=== PATIENT | female | born 1955 | race Caucasian/White ===

== ENCOUNTER 2019-09-01 13:39 | Emergency (ER) | payer OTHER, BC, SELFPAY ==
--- NOTE | ~2019-09-01 | XR_ITS ---
XR hand LT min 3V 09/01/2019 14:21 Indication: Left hand pain after trauma. Procedure: 3 views left hand Comparison: Comparison to multiple prior studies sequentially, with oldest reviewed study dated 01/22. Findings: There is a side plate and screws transfixing distal aspect of the radius. There is an old u lnar styloid avulsion fracture with nonunion. 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 No acut e fracture or traumatic malalignment. No focal soft tissue abnormality. No radiopaque foreign bodies. Impression: 1: No acute fracture. Reviewed, dictated and finalized at location A. Impression: 1: No acute fracture.
[2019-09-01 13:40] VITALS: BP 131/80; PULSE 85; RESP 18; TEMP 36.4; O2SAT 99
--- NOTE | 2019-09-01 14:23 | ED.GENADULT ---
HPI - General Adult General Chief complaint: Extremity Injury, Upper Stated complaint: left finger injury Time Seen by Provider: 09/01/19 13:56 Source: patient Mode of arrival: ambulatory Limitations: no limitations History of Present Illness HPI narrative: 63-year-old female patient presents to the [facility] care with complaints of left second, third, fourth finger pain but more specifically in the third finger. Patient states that she smashed her fingers in a door about a week ago while at work. Patient states that she iced it right away and has been taking ibuprofen for the pain. Patient states she has been using a finger splint to the left middle finger. Patient states she continues to have pain specifically to the left middle finger. Patient states that she tried to get an x-ray at her primary doctor however she went to the urgent care and they were closed so she came here for x-rays. Patient is right-hand dominant. Related Data Home Medications Medication Instructions Recorded Confirmed albuterol sulfate [Ventolin HFA] INHALATION 09/01/19 09/01/19 lisinopril-hydrochlorothiazide tablet 09/01/19 metformin mg 09/01/19 pantoprazole PO 09/01/19 pravastatin 09/01/19 Allergies Allergy/AdvReac Type Severity Reaction Status Date / Time codeine Allergy Severe HIVES, Verified 09/01/19 13:47 FLUSHING Review of Systems Review of Systems: Narrative: CONSTITUTIONAL: Denies fever, chills, or sweats. EYES: Denies visual changes, redness, or discharge. ENT: Denies rhinorrhea, congestion, sore throat, or otalgia. CARDIOVASCULAR: Denies chest pain, palpitations, or edema. RESPIRATORY: Denies cough or dyspnea. GASTROINTESTINAL: Denies abdominal pain, nausea, vomiting, or diarrhea. GENITOURINARY: Denies dysuria or hematuria. SKIN: Denies rash or itching. MUSCULOSKELETAL: Denies back pain, joint pain, or myalgia. Positive left second, third and fourth finger pain NEUROLOGIC: Denies headache, numbness, or weakness. PSYCHIATRIC: Denies anxiety or depression. [facility] Family History Family History Mother Family history of glaucoma Sibling Family history of malignant neoplasm Father Malignant neoplasm of prostate Acute myocardial infarction Other Family history of cardiovascular disease Social History Social History Alcohol intake: never Gender identity (if verbalized by the patient): Female Comments At the time of my signature I agree with nursing past medical history, surgical, social, and family history. There is no relevant family history pertinent to the presenting complaint. Exam Narrative: Exam Narrative: GENERAL: Well-appearing, well-nourished, and in no acute distress. HEAD: Normocephalic, atraumatic. EYES: PERRLA and EOMI. ENT: Nares clear, no rhinorrhea or epistaxis. Mucous membranes moist. NECK: Supple. No lymphadenopathy CHEST: Clear to auscultation. No respiratory distress. HEART: Regular rate and rhythm. No murmur heard. Normal peripheral pulses. ABDOMEN: Soft, nontender, nondistended, normal active bowel sounds. EXTREMITIES: The L hand is without obvious asymmetry or deformity when compared to the R hand. No swelling, erythema, atrophy, or obvious deformity. No surface trauma, open wounds, nail avulsion, tissue avulsion, partial or complete amputation, subungual hematoma, bony deformity. Normal cascade of fingers except for the left middle finger which patient is unable to bend without pain. Normal flexion and extension of all other fingers. FDS and FDP intact aganist restistance. No focal fullness, thobbing pain, swelling of fingertip. No tenderness to palpation of the left middle finger. Pulses and cap refill. SKIN: Warm, dry, no rash. NEURO: No focal deficits. Alert and oriented x3. Course Reevaluation(s) Reevaluation #1: Reevaluated patient after her x-rays had resulted. Notified her th
[2019-09-01 15:26] VITALS: BP 132/72; PULSE 70; RESP 16; TEMP 36.2; O2SAT 99
== END 2019-09-01 15:27 | disposition home or self-care (01) ==
PROVIDERS: Emergency Provider Nurse Practitioner Family; PCP Family Medicine
DX: S63.613A Unspecified sprain of left middle finger, initial encounter (principal); Z79.84 Long term (current) use of oral hypoglycemic drugs; R03.0 Elevated blood-pressure reading, without diagnosis of hypertension; W23.0XXA Caught, crushed, jammed, or pinched between moving objects, initial encounter
CPT/HCPCS: 73130; 99283

== ENCOUNTER → 2021-03-19 01:47 | Outpatient (CLI) | payer BC, SELFPAY ==
[2021-03-20 03:59] LABS: SARS-CoV-2 RNA PCR Positive
== END ==
PROVIDERS: PCP Family Medicine; Visit Provider Physician Assistant
DX: U07.1 COVID-19 (principal)
CPT/HCPCS: C9803; U0003; U0005

== ENCOUNTER 2021-03-21 07:42 | Outpatient (RCR) | payer BC, SELFPAY ==
[2021-03-21] MEDS: FAMOTIDINE 20 MG TABLET PO (10:15)
[2021-03-21] MEDS: diphenhydrAMINE HCl CAP 25 MG CAPSULE PO (10:15)
[2021-03-21] MEDS: ACETAMINOPHEN 325 MG TABLET 650 MG PO (10:15)
[2021-03-21 10:20] VITALS: BP 147/77; PULSE 86; RESP 20; TEMP 35.9; O2SAT 95
[2021-03-21 11:54] VITALS: BP 135/67
== END 2021-03-21 17:00 ==
LOC: AMCINF 07:42
PROVIDERS: PCP Physician Assistant; Visit Provider Internal Medicine Hematology & Oncology
DX: U07.1 COVID-19 (principal); E11.9 Type 2 diabetes mellitus without complications; I10 Essential (primary) hypertension
CPT/HCPCS: A9270; M0245; Q0245

== ENCOUNTER 2021-03-25 15:43 | Inpatient (IN) | payer BC, SELFPAY ==
--- NOTE | ~2021-03-25 | CT_ITS ---
EXAMINATION: CTA chest PE abdomen pel EXAM DATE: 03/25/2021 20:03 INDICATION: SOB, COVID+, abdominal pain, vomiting, diarrhea. TECHNIQUE: Spiral CTA of the chest (pulmonary arteries) was performed with 100 cc Omnipaque 350 intr avenous contrast injection. Images were acquired during the pulmonary arterial phase. Coronal maxi mum intensity projection 3D-reconstructions were created by the technologist on dedicated workstation . Axial, coronal and sagittal reformatted images were reviewed. Spiral CT of the abdomen and pelvis was then performed with the same intravenous contrast injection. Axial, coronal and sagittal reform atted images were reviewed. The dose-length product (DLP) for this examination was 4.43 mGy-cm. The exposure was tailored according to patient size (auto mA exposure control), and iterative recons truction (ASIR) was used as additional dose reduction technique. Correlation is made to chest x-ray s jimmy date. FINDINGS: CHEST: Pulmonary arteries are well opacified and without intraluminal filling defects. No thoracic aortic dissection. Moderate amount of groundglass density airspace disease, appearance and distribu tion is consistent with acute stage COVID pneumonia. There are no pleural or pericardial effusions. Tracheobronchial tree is patent. There is no mediastinal, hilar or axillary lymphadenopathy. Th ere is no pneumothorax. Heart normal in size. There is mild coronary arterial calcification, victor manuel rial sclerosis. ABDOMEN PELVIS: The liver, spleen, adrenal glands and pancreas are unremarkable. There are cholecyst ectomy clips. Portal and splenic veins are patent. Kidneys enhance symmetrically. There is no hydr onephrosis. The uterus is not identified and has likely been surgically resected. The bladder is u nremarkable. There is no retroperitoneal or pelvic lymphadenopathy. The appendix is not positively visualized. There is no pericecal inflammatory change to suggest appe ndicitis. The stomach and small bowel are unremarkable. There is expected amount of colonic stool. No free intraperitoneal gas. There are no osteoblastic or osteolytic lesions identified. IMPRESSION: 1. Moderate amount of COVID pneumonia. 2. No pulmonary emboli. 3. No acute intra-abdominal findings. Reviewed, dictated and finalized at location A. R INSPECTOR
--- NOTE | ~2021-03-25 | XR_ITS ---
EXAMINATION: XR chest 1V portable EXAM DATE: 03/25/2021 18:39 INDICATION: sob, Covid +, hx of asthma, HTN . TECHNIQUE: Portable AP frontal chest x-ray was obtained. There is no prior study for comparison. FINDINGS: Moderate amount of bilateral ill-defined peripheral predominant airspace disease, appearanc e is consistent with COVID pneumonia. No pneumothorax or pleural effusion. Mild cardiomegaly. There a re mild bony degenerative changes. IMPRESSION: 1. Moderate amount of airspace disease consistent with COVID pneumonia. Reviewed, dictated and finalized at location A. IDE MAINTENANCE WORKER
[2021-03-25 15:57] VITALS: BP 149/85; PULSE 82; RESP 20; TEMP 36.1; O2SAT 95
--- NOTE | 2021-03-25 16:52 | ECG_ITS ---
Measurements Intervals [place] Rate: 78 P: 1 WA: 132 QRS: -17 QRSD: 109 T: 35 QT: 370 QTc: 423 Interpretive Statements SINUS RHYTHM DELAYED PRECORDIAL R/S TRANSITION LEFT VENTRICULAR HYPERTROPHY AND ST-T CHANGE BASELINE ARTIFACT- I, II, III, AVR BORDERLINE ECG Electronically Signed On 03-25-2021 17:12:23 BACTERIOLOGIST DAIRY by Zack Mena D.O.
--- NOTE | 2021-03-25 17:05 | PC.NURSE ---
Pt c/o having chest pain and feeling like she is going to pass out.
[2021-03-25 17:06] VITALS: BP 158/95; PULSE 79; RESP 24; O2SAT 89
[2021-03-25 17:07] VITALS: O2SAT 95
--- NOTE | 2021-03-25 18:34 | ED.GENADULT ---
HPI - General Adult General Chief complaint: Unspecified Stated complaint: tested pos for covid, dehydrated. 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 She states that she tested positive for COVID on 03/19 and had antibody infusion the next day. However, she continues to feel worse. She states that she feels dehydrated. She has history of asthma. Related Data Home Medications Medication Instructions Recorded Confirmed albuterol sulfate [Ventolin HFA] 2 mcg INHALATION Q4H PRN 09/01/19 03/25/21 metformin 500 mg PO BID 09/01/19 03/25/21 pantoprazole [Protonix] 40 mg PO DAILY 09/01/19 03/25/21 pravastatin 20 mg PO DAILY 09/01/19 03/25/21 lisinopril 40 mg PO DAILY 03/25/21 03/25/21 Allergies Allergy/AdvReac Type Severity Reaction Status Date / Time codeine Allergy Severe HIVES, Verified 09/01/19 13:47 FLUSHING Review of Systems Constitutional: Constitutional: Denies chills, Denies fever(s), Denies headache(s) and Denies weakness Eyes: Eyes: Denies blurry vision ENT: Denies headache(s) and Denies neck pain Cardiovascular: Cardiovascular: Reports chest pain and Reports dyspnea Respiratory: Respiratory: Reports cough and Reports dyspnea Gastrointestinal: Gastrointestinal: Reports abdominal pain, Reports diarrhea, Reports nausea and Reports vomiting Genitourinary: Genitourinary: Denies hematuria and Denies dysuria Musculoskeletal: Musculoskeletal: Denies back pain and Denies neck pain Neurologic: Denies headache(s) and Denies weakness PMFSH Past Medical History Medical History Asthma Borderline diabetes mellitus Chronic sinusitis Essential hypertension GERD (gastroesophageal reflux disease) Hyperlipidemia Normal colonoscopy Obesity, morbid, BMI 40.0-49.9 Obstructive sleep apnea Does not use CPAP Psoriasis Right arm Surgical History Surgical History H/O hysterectomy for benign disease (~1997) History of appendectomy History of total right knee replacement (~2016) Hx of cholecystectomy Status post open reduction with internal fixation of fracture (~2007) Left radius Family History Family History Mother Glaucoma CHF (congestive heart failure) Sibling No problems noted. Father , Age 62 Acute myocardial infarction Malignant neoplasm of prostate Social History Social History Social History: Patient lives at home with her of 16 years. She has 3 biologic children and 2 step children. She works at [employer]. She rarely drinks alcohol and only small amounts. She smoked 1 pack of cigarettes per week for approximately 3-5 years when she was younger. Smoking status: Never smoker Second hand tobacco smoke exposure: Yes Alcohol intake: current Drinks per week: 1 Substance use: never Gender identity (if verbalized by the patient): Female Spiritual care concerns: No Exam Const: General: no acute distress and well developed Orientation/consciousness: oriented to person, oriented to place, oriented to time and patient oriented x3 HENMT: Head: normocephalic Ears: external ears normal General nose exam: Normal external nose present Eyes: General: appearance normal, both eyes and all related structures Conjunctivae: conjunctivae normal Neck: Neck: normal visual inspection and full ROM Chest: Chest palpation & inspection: normal inspection of the chest and no tenderness Resp: Effort & Inspection: Actively coughing and tachypneic Cardio: Rate: regular rate Rhythm: regular rhythm GI: GI Palp: No abdominal tenderness and Yes Soft to palpation Skin:
[2021-03-25] MEDS: SODIUM CHLORIDE 0.9% IV 1,000 ML 999 ML IV CONT (18:46)
[2021-03-25] MEDS: ONDANSETRON INJ 4 MG/2 ML VIAL IV PUSH (18:46)
[2021-03-25 19:00] LABS: Basophils Percent Auto 0.1 % (0.2-1.2); Eosinophils Absolute Auto 0.1 K/mm3 (0-0.3); Eosinophils Percent Auto 0.7 % (0-4.4); Hematocrit 39.5 % (37.0-47.0); Immature Granulocyte Absolute 0.05 K/mm3 (0.00-0.031); Immature Granulocyte Percent A 0.7 % (0-0.5); Lymphocytes Absolute Auto 1.34 K/mm3 (0.9-3.2); Mean Corpuscular HGB Conc 32.9 g/dl (32-36); Mean Corpuscular Hemoglobin 28.1 pg (26-34); Mean Corpuscular Volume 85.5 fl (80-100); Mean Platelet Volume 8.7 fl (7.4-10.4); Monocytes Absolute Auto 0.3 K/mm3 (0.1-0.6); Monocytes Percent Auto 4.4 % (2.6-8.5); Neutrophils Absolute Auto 5.7 K/mm3 (1.3-6.7); Neutrophils Percent Auto 76.1 % (45.5-73.1); Platelet Count Result 316 k/mm3 (150-375); Red Blood Count 4.62 M/mm3 (4.2-5.4); Red Cell Distribution Width 13.4 % (11.5-14.5); White Blood Count 7.4 K/mm3 (4.5-10.0)
[2021-03-25 19:15] LABS: Alanine Aminotransferase 45 U/L (4-35); Alkaline Phosphatase 78 U/L (38-126); Anion Gap 9 mmol/L (8-16); Aspartate Amino Transferase 49 U/L (14-36); Bilirubin,Total 0.6 mg/dL (0.2-1.3); Blood Urea Nitrogen 15 mg/dL (7-17); Calcium 9.1 mg/dL (8.4-10.2); Carbon Dioxide 31 mmol/L (22-30); Chloride 97 mmol/L (98-107); Estimated CRCL calculation 111 ml/min; Estimated Glomerular Filt Rate > 60; Glucose 124 mg/dL (65-110); Sodium 137 mmol/L (137-145)
[2021-03-25 19:22] LABS: D Dimer 1.23 ug/mL (<0.48)
[2021-03-25 19:24] LABS: NT Pro B Type Natriuretic Pept 332 pg/mL (5-100)
[2021-03-25 19:28] LABS: Troponin I 0.014 ng/mL (0.000-0.034)
[2021-03-25 19:40] LABS: INR 1.1; Prothrombin Time 14.1 Seconds (11.1-14.7)
[2021-03-25 21:04] VITALS: BP 142/68; PULSE 78; RESP 18; O2SAT 99
[2021-03-25] MEDS: REMDESIVIR 200 MG/NS 250 ML 200 MG/250 ML BAG 250 MG IVPB (21:26)
[2021-03-25] MEDS: POTASSIUM CHLORIDE 20 MEQ TABLET 40 MEQ PO (21:27)
[2021-03-25 22:06] LABS: Alanine Aminotransferase 40 U/L (4-35); Estimated CRCL calculation 135 ml/min; Estimated Glomerular Filt Rate > 60
[2021-03-25 22:13] LABS: Troponin I 0.013 ng/mL (0.000-0.034)
[2021-03-25 23:04] VITALS: BMI 40.7
[2021-03-25 23:30] VITALS: BP 139/85; PULSE 68; RESP 120; TEMP 35.7; O2SAT 96
--- NOTE | 2021-03-25 23:52 | PM.IMHP ---
H&P: HPI History of Present Illness Date/Time: 03/25/21 21:35 Chief Complaint: Shortness of breath Narrative: 65-year-old female with a past medical history of obstructive sleep apnea, GERD, hypertension, asthma and hyperlipidemia who presented to the ER from home with nausea vomiting and diarrhea. The patient reports that she has been ill with upper respiratory symptoms and fever since . She reports that she has chronic sinus congestion and pressure after having head trauma in 1981. However on she began spiking fevers with a T-max of 101.6?. His she called her primary care physician and was started on prednisone and Augmentin on the . She had a COVID PCR performed which was positive on the . She received outpatient Regen infusion on the . He reports that since the she has been having difficulty ambulating between her bedroom and the bathroom due to dyspnea. At the time my evaluation the patient is markedly dyspneic at rest. Was not until her degree of dyspnea that I realized the patient had taken her nasal cannula oxygen off. Shortly after arriving to the ER the patient had developed hypoxia with oxygen saturations of 89% on room air. The patient had been placed on nasal cannula oxygen but the patient had climbed out of the ER bed with both bed rails up in order to use the bedside commode. When she climbed out of bed she took the nasal cannula oxygen off. When I arrived in the room the patient was sitting in a chair at the foot of the bed with the door open. The patient reports that she has had a dry nonproductive cough for a couple of weeks that she thought was due to her environmental allergies. She has not noticed any loss of sense of taste or smell. She has had generalized myalgias. She has had markedly decreased appetite and over the last 3 days she has began having 2 episodes of watery diarrhea daily that her yellow to brown in color. She has also had 3 days of nausea and vomiting with a couple of episodes of her emesis being yellow in color. She denies any chest pain. She has not had any upper palpitations. She denies any lower extremity swelling or orthopnea. She received her 2nd Pfizer vaccine at the end of May. She has not had her booster. Review of Systems Review of Systems: 12 systems were reviewed with pertinent positives and negatives per HPI. Except as documented in the HPI, all other systems were reviewed and are negative. [facility] Past Medical History Medical History (Updated 03/26/21 @ 00:32 by Regine Yates DO) Asthma Borderline diabetes mellitus Chronic sinusitis Essential hypertension GERD (gastroesophageal reflux disease) Hyperlipidemia Normal colonoscopy Obesity, morbid, BMI 40.0-49.9 Obstructive sleep apnea Does not use CPAP Surgical History Surgical History (Updated 03/26/21 @ 00:31 by Regine Yates DO) H/O hysterectomy for benign disease (~1997) History of appendectomy History of total right knee replacement (~2016) Hx of cholecystectomy Status post open reduction with internal fixation of fracture (~2007) Left radius Family History Family History (Updated 03/26/21 @ 00:38 by Regine Yates DO) Mother Glaucoma CHF (congestive heart failure) Sibling No problems noted. Father , Age 62 Acute myocardial infarction Malignant neoplasm of prostate Social History Social History (Updated 03/26/21 @ 00:38 by Regine Yates DO) Social History: Patient lives at home with her of 16 years. She has 3 biologic children and 2 step children. She works at [employer]. She rarely drinks alcohol and only small amounts. She smoked 1 pack of cigarettes per week for approximately 3-5 years when she was younger. Smoking status: Never smoker Second hand tobacco smoke exposure: Yes Alcohol intake: current Drinks per week: 1 Substance use: never Gender identity (if verbalized by the patient): Female Spiritual
[2021-03-26] VITALS (8 sets, daily range): BP systolic 142–151; BP diastolic 64–85; PULSE 63–95; RESP 16–20; TEMP 35.9–36.2; O2SAT 93–97
--- NOTE | 2021-03-26 01:23 | PC.NURSE ---
Patient resting awake in bed on back, no complaints at this time. Request for ice water provided. WIll continue to monitor.
[2021-03-26 01:59] LABS: Troponin I 0.014 ng/mL (0.000-0.034)
--- NOTE | 2021-03-26 03:54 | PCRCNOTE ---
past scheduled time of administration, see next available administration. therapist called pharmacy and never got inhaler for pt.
[2021-03-26] MEDS: SODIUM CHLORIDE 0.9% IV 1,000 ML 100 ML IV CONT (05:47)
[2021-03-26 07:13] LABS: Alanine Aminotransferase 43 U/L (4-35); Albumin Level 3.7 g/dL (3.5-5.1); Alkaline Phosphatase 71 U/L (38-126); Anion Gap 6 mmol/L (8-16); Aspartate Amino Transferase 41 U/L (14-36); Bilirubin,Total 0.4 mg/dL (0.2-1.3); Blood Urea Nitrogen 13 mg/dL (7-17); Calcium 8.7 mg/dL (8.4-10.2); Carbon Dioxide 30 mmol/L (22-30); Chloride 103 mmol/L (98-107); Estimated CRCL calculation 135 ml/min; Estimated Glomerular Filt Rate > 60; Glucose 158 mg/dL (65-110); Lactate Dehydrogenase 798 U/L (313-618); Magnesium 2.3 mg/dL (1.6-2.3); Potassium 3.3 mmol/L (3.4-5.0); Sodium 139 mmol/L (137-145)
[2021-03-26 07:34] LABS: Hematocrit 36.6 % (37.0-47.0); Hemoglobin 12.1 g/dL (12.0-15.0); Mean Corpuscular HGB Conc 33.1 g/dl (32-36); Mean Corpuscular Volume 84.7 fl (80-100); Mean Platelet Volume 9.1 fl (7.4-10.4); Platelet Count Result 341 k/mm3 (150-375); Red Blood Count 4.32 M/mm3 (4.2-5.4); Red Cell Distribution Width 13.3 % (11.5-14.5); White Blood Count 3.6 K/mm3 (4.5-10.0)
[2021-03-26 07:54] LABS: INR 1.1; Prothrombin Time 13.8 Seconds (11.1-14.7)
[2021-03-26] MEDS: ENOXAPARIN 40 MG/0.4 ML SYRINGE SUB-Q (08:35)
--- NOTE | 2021-03-26 11:23 | PCRCNOTE ---
Window of time for administration has passed. See next scheduled administration.
[2021-03-26] MEDS: ALBUTEROL SULFATE (*SP) INHALER 4 PUFF INHALATION ×2 (11:30→21:30)
[2021-03-26] MEDS: POTASSIUM CHLORIDE 20 MEQ TABLET PO (11:42)
--- NOTE | 2021-03-26 16:43 | PM.IMPN ---
Progress Note: A&P Assessment and Plan (1) Acute respiratory failure with hypoxia: Code(s): J96.01 - Acute respiratory failure with hypoxia Status: Acute Assessment and Plan: Secondary to COVID-19 pneumonia. CTA negative for PE. Currently requiring 2 L per nasal cannula Continue supplemental O2 with goal saturation 92% or above (2) Pneumonia due to COVID-19 virus: Code(s): U07.1 - COVID-19; J12.82 - Pneumonia due to coronavirus disease 2018 Status: Acute Assessment and Plan: Positive COVID-19 test on 03/19/2021. She did receive outpatient monoclonal antibody infusion Continue dexamethasone and remdesivir #2. Monitor LFTs while on remdesivir Supportive care to include bronchodilators, expectorants, antipyretics, incentive spirometry Trend inflammatory markers Continue isolation precautions She did complete Pfizer vaccination. Has not received booster. (3) Elevated liver transaminase level: Code(s): R74.01 - Elevation of levels of liver transaminase levels Status: Acute Assessment and Plan: Secondary to acute viral illness. Continue to trend ALT in appropriate range to continue remdesivir (4) Hypokalemia: Code(s): E87.6 - Hypokalemia Status: Acute Assessment and Plan: Potassium 3.3 this morning. 20 mEq p.o. KCl Repeat BMP in the morning Subjective Date/time seen: 03/26/21 16:43 Interval history: Date of service: 03/26/2021 Diana Alexis is a 65-year-old female with a history of asthma, hypertension, hyperlipidemia, TIA, psoriasis, and prediabetes who is seen in follow-up for COVID-19 pneumonia. She is starting to feel better today. Her appetite is improving. She is coughing less frequently. Shortness of breath has improved. She does still endorse conversational dyspnea as well as VERMA. Still feeling quite weak and not herself. No nausea, vomiting, fever, or chills. Denies loss of taste or smell. Denies dizziness or lightheadedness. She has no additional concerns at this time. Review of Systems Review of Systems: All systems reviewed & are unremarkable except as noted in HPI and below Exam Narrative: Ms. Alexis is a well-nourished, well-appearing 65-year-old female who is lying supine in bed. She appears comfortable and is in NARD. Neuro: awake, alert and oriented x4, speech clear, no focal neuro deficits noted HEENMT: normocephalic, atraumatic, EOMI, sclerae anicteric Neck: supple, no lymphadenopathy Respiratory: clear to auscultation bilaterally without crackles, rhonchi, or wheezes, nonlabored breathing Cardio: regular rate, regular rhythm with S1-S2 Abdomen: nondistended, normoactive bowel sounds, soft, nontender to palpation Extremities: no edema, erythema, cyanosis, clubbing, or tenderness to palpation, DP pulses 2+ bilaterally Skin: Psoriasis plaque on right anterior forearm no rashes or lesions, warm and dry Psych: appropriate mood and affect, judgment and insight intact Objective Data Vital Signs Vital Signs: Vital Signs - 24 hr 03/25/21 17:06 03/25/21 17:07 03/25/21 21:04 Temperature Pulse Rate 79 78 Respiratory Rate 24 H 18 Blood Pressure 158/95 H 142/68 H Pulse Oximetry 89 L 95 99 03/25/21 23:30 03/26/21 04:00 03/26/21 08:00 Temperature 96.3 F L 97 F L Pulse Rate 68 63 Respiratory Rate 120 H 20 Blood Pressure 139/85 143/85 H Pulse Oximetry 96 96 96 03/26/21 10:32 03/26/21 11:30 03/26/21 12:46 Temperature 97.1 F L 97.2 F L Pulse Rate 64 95 Respiratory Rate 16 18 Blood Pressure 145/64 H 142/70 H Pulse Oximetry 96 94 94 Intake/Output Intake/Output: Intake & Output 03/23/21 03/24/21 03/25/21 03/26/21 23:59 23:59 23:59 23:59 Intake Total 1250 580 Balance 1250 580 Meds/Results Medications: Active Medications Generic Name Dose Route Start Last Admin Trade Name Freq PRN Reason Stop Dose Admin Acetaminophen 650 mg 03/26/21 00:23
[2021-03-26] MEDS: REMDESIVIR 100 MG/NS 250 ML 100 MG/250 ML BAG 250 MG IVPB (21:08)
[2021-03-27] VITALS (9 sets, daily range): BP systolic 140–148; BP diastolic 73–81; PULSE 65–78; RESP 16–20; TEMP 36.1–36.9; O2SAT 93–98
[2021-03-27] MEDS: ALBUTEROL SULFATE (*SP) INHALER 4 PUFF INHALATION ×4 (02:10→21:11)
[2021-03-27 07:14] LABS: Alanine Aminotransferase 35 U/L (4-35); Albumin Level 3.2 g/dL (3.5-5.1); Alkaline Phosphatase 53 U/L (38-126); Anion Gap 5 mmol/L (8-16); Aspartate Amino Transferase 32 U/L (14-36); Bilirubin,Total 0.2 mg/dL (0.2-1.3); Blood Urea Nitrogen 22 mg/dL (7-17); CRP 5.6 mg/dL (<1.0); Calcium 8.5 mg/dL (8.4-10.2); Carbon Dioxide 27 mmol/L (22-30); Chloride 106 mmol/L (98-107); Estimated CRCL calculation 111 ml/min; Estimated Glomerular Filt Rate > 60; Glucose 151 mg/dL (65-110); Lactate Dehydrogenase 633 U/L (313-618); Sodium 138 mmol/L (137-145)
[2021-03-27 07:16] LABS: Hematocrit 34.4 % (37.0-47.0); Hemoglobin 10.7 g/dL (12.0-15.0); Mean Corpuscular HGB Conc 31.1 g/dl (32-36); Mean Corpuscular Hemoglobin 27.4 pg (26-34); Mean Corpuscular Volume 88.2 fl (80-100); Mean Platelet Volume 9.2 fl (7.4-10.4); Platelet Count Result 380 k/mm3 (150-375); Red Cell Distribution Width 13.8 % (11.5-14.5); White Blood Count 5.4 K/mm3 (4.5-10.0)
[2021-03-27 07:20] LABS: INR 1.1; Prothrombin Time 14.4 Seconds (11.1-14.7)
[2021-03-27] MEDS: POTASSIUM CHLORIDE 20 MEQ TABLET 40 MEQ PO (09:22)
[2021-03-27] MEDS: ENOXAPARIN 40 MG/0.4 ML SYRINGE SUB-Q (09:22)
[2021-03-27] MEDS: PANTOPRAZOLE 40 MG TABLET PO (09:22)
[2021-03-27] MEDS: metFORMIN HCL 500 MG TABLET PO ×2 (09:22→17:21)
[2021-03-27] MEDS: lisinopriL 20 MG TABLET 40 MG PO (10:56)
--- NOTE | 2021-03-27 13:34 | PM.IMPN ---
Progress Note: A&P Assessment and Plan (1) Acute respiratory failure with hypoxia: Code(s): J96.01 - Acute respiratory failure with hypoxia Status: Acute Assessment and Plan: Secondary to COVID-19 pneumonia. CTA negative for PE. Currently requiring 2 L per nasal cannula Continue supplemental O2 with goal saturation 92% or above (2) Pneumonia due to COVID-19 virus: Code(s): U07.1 - COVID-19; J12.82 - Pneumonia due to coronavirus disease 2018 Status: Acute Assessment and Plan: Positive COVID-19 test on 03/19/2021. She did receive outpatient monoclonal antibody infusion Continue dexamethasone and remdesivir #3. Monitor LFTs while on remdesivir Supportive care to include bronchodilators, expectorants, antipyretics, incentive spirometry Trend inflammatory markers Continue isolation precautions She completed Pfizer vaccination. Has not received booster. (3) Elevated liver transaminase level: Code(s): R74.01 - Elevation of levels of liver transaminase levels Status: Acute Assessment and Plan: Secondary to acute viral illness. LFTs have normalized today ALT in appropriate range to continue remdesivir (4) Hypokalemia: Code(s): E87.6 - Hypokalemia Status: Acute Assessment and Plan: Potassium 3.0 this morning. 40 mEq p.o. KCl this a.m. Start scheduled potassium supplementation 20 mEq b.i.d. Repeat BMP in the morning (5) Essential hypertension: Code(s): I10 - Essential (primary) hypertension Status: Inactive Assessment and Plan: Blood pressure reviewed and has been reasonably controlled. Last BP 140/78 Continue home lisinopril Monitor BP trends and adjust regimen as needed Subjective Date/time seen: 03/27/21 13:34 Interval history: Date of service: 03/26/2021 Diana Alexis is a 65-year-old female with a history of asthma, hypertension, hyperlipidemia, TIA, psoriasis, and prediabetes who is seen in follow-up for COVID-19 pneumonia. She slept very poorly last and is feeling fatigued today. She also feels that she is slightly more short of breath today and is working a bit harder to breathe. She got up in the middle the night and walked to the hallway to [facility] for assistance since her call light was not working. She stated that doing all of this got her worked up and feeling short of breath. She does endorse VERMA and conversational dyspnea. Continues to endorse cough productive of clear sputum. Her appetite is still poor but she is trying to get herself to eat. Denies nausea, vomiting, fever, chills, dizziness, lightheadedness, weakness, body aches, abdominal pain. Denies diarrhea. Denies urinary symptoms. Review of Systems Review of Systems: All systems reviewed & are unremarkable except as noted in HPI and below Exam Narrative: Ms. Alexis is a well-nourished, well-appearing 65-year-old female who is lying supine in bed. She appears comfortable and is in NARD. Neuro: awake, alert and oriented x4, speech clear, no focal neuro deficits noted HEENMT: normocephalic, atraumatic, EOMI, sclerae anicteric Neck: supple, no lymphadenopathy Respiratory: clear to auscultation bilaterally without crackles, rhonchi, or wheezes, able to speak in complete sentences, no accessory muscle use or retractions Cardio: regular rate, regular rhythm with S1-S2 Abdomen: nondistended, normoactive bowel sounds, soft, nontender to palpation Extremities: no edema, erythema, or tenderness to palpation, DP pulses 2+ bilaterally Skin: Psoriasis plaque on right anterior forearm no rashes or lesions, warm and dry Psych: appropriate mood and affect, judgment and insight intact Objective Data Vital Signs Vital Signs: Vital Signs - 24 hr 03/26/21 16:58 03/26/21 20:00 03/26/21 21:30 Temperature 96.7 F L 97 F L Pulse Rate 72 68 Respiratory Rate 18 20 Blood Pressure 151/72 H 147/82 H Pulse Oximetry 93 97 93 03/27
[2021-03-27] MEDS: POTASSIUM CHLORIDE 20 MEQ TABLET.ER PO (17:21)
[2021-03-27] MEDS: PRAVASTATIN SODIUM 20 MG TABLET PO (17:21)
[2021-03-27] MEDS: REMDESIVIR 100 MG/NS 250 ML 100 MG/250 ML BAG 250 MG IVPB (22:06)
[2021-03-28] VITALS (10 sets, daily range): BP systolic 138–182; BP diastolic 54–93; PULSE 65–74; RESP 16–19; TEMP 36.3–36.7; O2SAT 94–99
[2021-03-28] MEDS: ALBUTEROL SULFATE (*SP) INHALER 4 PUFF INHALATION ×3 (02:57→14:30)
[2021-03-28] MEDS: metFORMIN HCL 500 MG TABLET PO ×2 (08:48→17:27)
[2021-03-28] MEDS: PANTOPRAZOLE 40 MG TABLET PO (08:48)
[2021-03-28] MEDS: lisinopriL 20 MG TABLET 40 MG PO (08:48)
[2021-03-28] MEDS: ASPIRIN 81 MG ENTERIC TABLET PO (08:49)
[2021-03-28] MEDS: POTASSIUM CHLORIDE 20 MEQ TABLET.ER PO ×2 (08:49→17:27)
[2021-03-28] MEDS: ENOXAPARIN 40 MG/0.4 ML SYRINGE SUB-Q (08:49)
[2021-03-28 10:16] LABS: Hematocrit 33.5 % (37.0-47.0); Hemoglobin 10.7 g/dL (12.0-15.0); Mean Corpuscular HGB Conc 31.9 g/dl (32-36); Mean Corpuscular Hemoglobin 27.4 pg (26-34); Mean Corpuscular Volume 85.9 fl (80-100); Mean Platelet Volume 9.1 fl (7.4-10.4); Platelet Count Result 398 k/mm3 (150-375); White Blood Count 7.7 K/mm3 (4.5-10.0)
[2021-03-28 10:34] LABS: INR 1.2; Prothrombin Time 14.8 Seconds (11.1-14.7)
[2021-03-28 10:46] LABS: Alanine Aminotransferase 34 U/L (4-35); Albumin Level 3.4 g/dL (3.5-5.1); Alkaline Phosphatase 57 U/L (38-126); Anion Gap 7 mmol/L (8-16); Aspartate Amino Transferase 30 U/L (14-36); Bilirubin,Total 0.2 mg/dL (0.2-1.3); Blood Urea Nitrogen 16 mg/dL (7-17); CRP 2.9 mg/dL (<1.0); Calcium 8.8 mg/dL (8.4-10.2); Carbon Dioxide 27 mmol/L (22-30); Chloride 107 mmol/L (98-107); Estimated CRCL calculation 111 ml/min; Estimated Glomerular Filt Rate > 60; Glucose 154 mg/dL (65-110); Potassium 3.5 mmol/L (3.4-5.0); Sodium 141 mmol/L (137-145)
--- NOTE | 2021-03-28 12:56 | PM.IMPN ---
Progress Note: A&P Assessment and Plan (1) Acute respiratory failure with hypoxia: Code(s): J96.01 - Acute respiratory failure with hypoxia Status: Acute Assessment and Plan: Secondary to COVID-19 pneumonia. CTA negative for PE. Currently requiring 3 L per nasal cannula Continue supplemental O2 with goal saturation 92% or above (2) Pneumonia due to COVID-19 virus: Code(s): U07.1 - COVID-19; J12.82 - Pneumonia due to coronavirus disease 2018 Status: Acute Assessment and Plan: Positive COVID-19 test on 03/19/2021. She did receive outpatient monoclonal antibody infusion Continue dexamethasone and remdesivir #4. Monitor LFTs while on remdesivir Supportive care to include bronchodilators, expectorants, antipyretics, incentive spirometry Trend inflammatory markers, overall improving Continue isolation precautions She completed Pfizer vaccination. Has not received booster. (3) Elevated liver transaminase level: Code(s): R74.01 - Elevation of levels of liver transaminase levels Status: Acute Assessment and Plan: Secondary to acute viral illness. LFTs have normalized (4) Hypokalemia: Code(s): E87.6 - Hypokalemia Status: Acute Assessment and Plan: Potassium 3.5 this morning. Continue scheduled potassium supplementation 20 mEq b.i.d. Repeat BMP in the morning (5) Essential hypertension: Code(s): I10 - Essential (primary) hypertension Status: Inactive Assessment and Plan: Blood pressure reviewed and has been reasonably controlled. Last BP 148/71 Continue home lisinopril Monitor BP trends and adjust regimen as needed Subjective Date/time seen: 03/28/21 12:56 Interval history: Date of service: 03/28/2021 Diana Alexis is a 65-year-old female with a history of asthma, hypertension, hyperlipidemia, TIA, psoriasis, and prediabetes who is seen in follow-up for COVID-19 pneumonia. She feels about the same today. Slept poorly last night. She says she cannot sleep because she is coughing through the night. Her cough is unchanged. She is getting up some sputum that she describes as thick and yellow in color. She also has a lot of nasal congestion and dryness. She is breathing a little better today. Still endorses VERMA and conversational dyspnea. Feels weak and fatigued. No nausea, vomiting, fever, chills. Regular bowel movement this morning. She has been eating pretty well. Review of Systems Review of Systems: All systems reviewed & are unremarkable except as noted in HPI and below Exam Narrative: Ms. Alexis is a well-nourished, well-appearing 65-year-old female who is sitting up cross-legged in bed. She appears comfortable and is in NARD. Neuro: awake, alert and oriented x4, speech clear, no focal neuro deficits noted HEENMT: normocephalic, atraumatic, EOMI, sclerae anicteric Neck: supple, no lymphadenopathy Respiratory: Diminished breath sounds bilaterally without crackles, rhonchi, or wheezes, nonlabored breathing Cardio: regular rate, regular rhythm with S1-S2 Abdomen: nondistended, normoactive bowel sounds, soft, nontender to palpation Extremities: no edema, erythema, or tenderness to palpation, DP pulses 2+ bilaterally Skin: Psoriasis plaque on right anterior forearm, warm and dry Psych: appropriate mood and affect, judgment and insight intact Objective Data Vital Signs Vital Signs: Vital Signs - 24 hr 03/27/21 16:00 03/27/21 20:00 03/27/21 21:16 Temperature 97.8 F 98.3 F Pulse Rate 70 65 Respiratory Rate 18 16 Blood Pressure 148/81 H 142/73 H Pulse Oximetry 98 98 94 03/28/21 00:00 03/28/21 04:00 03/28/21 07:50 Temperature 97.3 F L 97.6 F Pulse Rate 68 74 Respiratory Rate 16 16 Blood Pressure 143/83 H 138/54 L Pulse Oximetry 98 95 94 03/28/21 08:00 03/28/21 11:08 Temperature 97.8 F Pulse Rate 70 Respiratory Rate 18 Blood Pressure 148/71 H Pulse Oximetr
[2021-03-28] MEDS: SALINE 0.65% NAS SOLN 44 ML BTL 1 SPRAY NASAL (16:04)
[2021-03-28] MEDS: PRAVASTATIN SODIUM 20 MG TABLET PO (17:27)
[2021-03-28] MEDS: REMDESIVIR 100 MG/NS 250 ML 100 MG/250 ML BAG 250 MG IVPB (21:09)
--- NOTE | 2021-03-28 23:28 | PCRCNOTE ---
Albuterol inhaler scheduled for 03/28/21 at 20:00 not administered. RT not available during treatment window due to priorities in the Emergency Department.
[2021-03-29] VITALS (8 sets, daily range): BP systolic 129–160; BP diastolic 64–90; PULSE 59–69; RESP 14–20; TEMP 36.6–36.8; O2SAT 95–98
[2021-03-29] MEDS: ALBUTEROL SULFATE (*SP) INHALER 4 PUFF INHALATION ×4 (02:09→19:07)
[2021-03-29 06:40] LABS: Hematocrit 33.2 % (37.0-47.0); Hemoglobin 10.6 g/dL (12.0-15.0); Mean Corpuscular HGB Conc 31.9 g/dl (32-36); Mean Corpuscular Hemoglobin 27.7 pg (26-34); Mean Corpuscular Volume 86.7 fl (80-100); Mean Platelet Volume 9.1 fl (7.4-10.4); Platelet Count Result 357 k/mm3 (150-375); Red Blood Count 3.83 M/mm3 (4.2-5.4); Red Cell Distribution Width 13.9 % (11.5-14.5); White Blood Count 5.5 K/mm3 (4.5-10.0)
[2021-03-29 06:53] LABS: Alanine Aminotransferase 30 U/L (4-35); Albumin Level 3.1 g/dL (3.5-5.1); Alkaline Phosphatase 52 U/L (38-126); Anion Gap 9 mmol/L (8-16); Aspartate Amino Transferase 26 U/L (14-36); Bilirubin,Total 0.2 mg/dL (0.2-1.3); Blood Urea Nitrogen 17 mg/dL (7-17); Calcium 8.6 mg/dL (8.4-10.2); Carbon Dioxide 27 mmol/L (22-30); Chloride 104 mmol/L (98-107); Estimated CRCL calculation 94 ml/min; Estimated Glomerular Filt Rate > 60; Glucose 111 mg/dL (65-110); Potassium 3.7 mmol/L (3.4-5.0); Sodium 140 mmol/L (137-145)
[2021-03-29 06:54] LABS: INR 1.1; Prothrombin Time 14.5 Seconds (11.1-14.7)
[2021-03-29] MEDS: ENOXAPARIN 40 MG/0.4 ML SYRINGE SUB-Q (09:27)
[2021-03-29] MEDS: PANTOPRAZOLE 40 MG TABLET PO (09:28)
[2021-03-29] MEDS: lisinopriL 20 MG TABLET 40 MG PO (09:28)
[2021-03-29] MEDS: POTASSIUM CHLORIDE 20 MEQ TABLET.ER PO ×2 (09:28→19:11)
[2021-03-29] MEDS: metFORMIN HCL 500 MG TABLET PO ×2 (09:28→19:11)
[2021-03-29] MEDS: ASPIRIN 81 MG ENTERIC TABLET PO (09:28)
[2021-03-29] MEDS: ACETAMINOPHEN 325 MG TABLET 650 MG PO ×2 (09:29→18:30)
--- NOTE | 2021-03-29 15:19 | PM.IMPN ---
Progress Note: A&P Assessment and Plan (1) Acute respiratory failure with hypoxia: Code(s): J96.01 - Acute respiratory failure with hypoxia Status: Acute Assessment and Plan: Secondary to COVID-19 pneumonia. CTA negative for PE. Required up to 3 L per nasal cannula. Now on room air but requiring supplemental O2 with activity. Continue supplemental O2 with goal saturation 92% or above Oxygen requirements have improved and will plan to proceed with home O2 eval tomorrow (2) Pneumonia due to COVID-19 virus: Code(s): U07.1 - COVID-19; J12.82 - Pneumonia due to coronavirus disease 2018 Status: Acute Assessment and Plan: Positive COVID-19 test on 03/19/2021. She did receive outpatient monoclonal antibody infusion Continue dexamethasone. Final dose of Remdesivir #5 tonight. LFTs within normal limits Supportive care to include bronchodilators, expectorants, antipyretics, incentive spirometry Inflammatory markers have improved Continue isolation precautions She completed Pfizer vaccination. Has not received booster. (3) Elevated liver transaminase level: Code(s): R74.01 - Elevation of levels of liver transaminase levels Status: Acute Assessment and Plan: Secondary to acute viral illness. LFTs have normalized (4) Hypokalemia: Code(s): E87.6 - Hypokalemia Status: Acute Assessment and Plan: Potassium 3.7 this morning. Continue scheduled potassium supplementation 20 mEq b.i.d. Repeat BMP in the morning (5) Essential hypertension: Code(s): I10 - Essential (primary) hypertension Status: Inactive Assessment and Plan: Blood pressure reviewed and has been reasonably controlled. Last BP 131/65 Continue home lisinopril Monitor BP trends and adjust regimen as needed Subjective Date/time seen: 03/29/21 15:19 Interval history: Date of service: 03/29/2021 Diana Alexis is a 65-year-old female with a history of asthma, hypertension, hyperlipidemia, TIA, psoriasis, and prediabetes who is seen in follow-up for COVID-19 pneumonia. Feels tired today. She is not sleeping well at night. She states that she is getting a breathing treatment just before bed and is keeping her up coughing. She feels pretty run down and weak still. Overall though slowly making progress and seems that shortness of breath is improving. Still with dyspnea on exertion. She got cleaned up today and said this took a lot out of her. Denies nausea, vomiting, or abdominal pain. No fevers or chills. Does note some lightheadedness with getting up. Denies dizziness. No chest pain or palpitations. No diarrhea. No abdominal pain. Review of Systems Review of Systems: All systems reviewed & are unremarkable except as noted in HPI and below Exam Narrative: Ms. Alexis is a well-nourished, well-appearing 65-year-old female who is sitting up in bed. She appears comfortable and is in NARD. Neuro: awake, alert and oriented x4, speech clear, no focal neuro deficits noted HEENMT: normocephalic, atraumatic, EOMI, sclerae anicteric Neck: supple, no lymphadenopathy Respiratory: Diminished breath sounds bilaterally, nonlabored breathing Cardio: regular rate, regular rhythm with S1-S2 Abdomen: nondistended, normoactive bowel sounds, soft, nontender to palpation Extremities: no edema, erythema, or tenderness to palpation, DP pulses 2+ bilaterally Skin: Psoriasis plaque on right anterior forearm, warm and dry Psych: appropriate mood and affect, judgment and insight intact Objective Data Vital Signs Vital Signs: Vital Signs - 24 hr 03/28/21 16:00 03/28/21 17:30 03/28/21 21:00 Temperature 97.8 F 98.0 F Pulse Rate 65 72 66 Respiratory Rate 19 18 Blood Pressure 175/89 H 182/93 H 146/87 H Pulse Oximetry 97 97 03/29/21 00:40 03/29/21 02:11 03/29/21 04:00 Temperature 98.0 F 98.3 F Pulse Rate 63 59 L 60 Respiratory Rate 20 18 Blood Pressure
[2021-03-29] MEDS: PRAVASTATIN SODIUM 20 MG TABLET PO (19:10)
[2021-03-29] MEDS: MELATONIN 3 MG TABLET PO (20:47)
[2021-03-29] MEDS: REMDESIVIR 100 MG/NS 250 ML 100 MG/250 ML BAG 250 MG IVPB (20:49)
[2021-03-30] VITALS (8 sets, daily range): BP systolic 139–166; BP diastolic 74–95; PULSE 58–90; RESP 18–20; TEMP 36.4–37; O2SAT 94–99
[2021-03-30] MEDS: ALBUTEROL SULFATE (*SP) INHALER 4 PUFF INHALATION ×2 (02:09→15:52)
[2021-03-30 08:12] LABS: Anion Gap 9 mmol/L (8-16); Blood Urea Nitrogen 16 mg/dL (7-17); Calcium 8.9 mg/dL (8.4-10.2); Carbon Dioxide 28 mmol/L (22-30); Chloride 103 mmol/L (98-107); Estimated CRCL calculation 111 ml/min; Estimated Glomerular Filt Rate > 60; Glucose 105 mg/dL (65-110); Potassium 3.8 mmol/L (3.4-5.0); Sodium 140 mmol/L (137-145)
[2021-03-30] MEDS: ENOXAPARIN 40 MG/0.4 ML SYRINGE SUB-Q (08:40)
[2021-03-30 08:41] LABS: Hematocrit 34.8 % (37.0-47.0); Hemoglobin 11.2 g/dL (12.0-15.0)
[2021-03-30] MEDS: ASPIRIN 81 MG ENTERIC TABLET PO (08:41)
[2021-03-30] MEDS: PANTOPRAZOLE 40 MG TABLET PO (08:41)
[2021-03-30] MEDS: lisinopriL 20 MG TABLET 40 MG PO (08:41)
[2021-03-30] MEDS: metFORMIN HCL 500 MG TABLET PO ×2 (10:24→17:20)
[2021-03-30] MEDS: POTASSIUM CHLORIDE 20 MEQ TABLET.ER PO ×2 (10:24→17:19)
[2021-03-30] MEDS: LORATADINE 5 MG TABLET PO (10:25)
[2021-03-30] MEDS: FLUTICASONE PROPIONATE 0.05% NA SPR 16 GM BTL (*BKC) 1 SPRAY NASAL (10:25)
--- NOTE | 2021-03-30 11:43 | HOMEO2EVAL ---
Evaluation was performed at [facility] Home Oxygen Evaluation RC: Home Oxygen (O2) Evaluation Start: 03/30/21 08:28 Freq: ONCE Status: Active Protocol: RPE Activity Type Activity Date Activity User E-Sign Co-Sign Detail Recorded Client Recorded Date Recorded By Document 03/30/21 11:22 KRM [email or web address] 03/30/21 11:42 KRM Document 03/30/21 11:25 KRM [email or web address] 03/30/21 11:42 KRM Document 03/30/21 11:27 KRM [email or web address] 03/30/21 11:42 KRM 03/30/21 03/30/21 03/30/21 11:22 11:25 11:27 Home O2 Evaluation Test Phase Resting Exercise Exercise Oxygen Delivery Room Air Room Air Room Air Pulse Oximetry (90-100 %) 97 94 94 Pulse Rate (60-100 beats/min) 64 73 75 Activity Tolerance Good Good Ambulation Distance (feet) 25 Ambulation Distance (meters) 7.61 Treatment Charges O2 Evaluation - Inpatient
--- NOTE | 2021-03-30 11:43 | PCRCNOTE ---
HOME OXYGEN EVALUATION COMPLETE, NO SUPPLEMENTAL O2 NEEDED.
--- NOTE | 2021-03-30 13:51 | PM.DS ---
DS: Admitting Diagnosis Discharge Date 03/30/2021 Admitting Diagnosis COVID-19 pneumonia DS: Discharge Diagnosis Discharge Diagnosis (1) Acute respiratory failure with hypoxia: Code(s): J96.01 - Acute respiratory failure with hypoxia Status: Acute Assessment and Plan: Secondary to COVID-19 pneumonia. CTA negative for PE. Required up to 3 L per nasal cannula. She was able to be weaned to room air Home O2 eval performed on 03/30/2021 and she had no ongoing oxygen requirements (2) Pneumonia due to COVID-19 virus: Code(s): U07.1 - COVID-19; J12.82 - Pneumonia due to coronavirus disease 2019 Status: Acute Assessment and Plan: Positive COVID-19 test on 03/19/2021. She did receive outpatient monoclonal antibody infusion Treated with dexamethasone Completed 5 days of IV remdesivir. LFTs were monitored. Supportive care provided including bronchodilators, expectorants, antipyretics, incentive spirometry Inflammatory markers improved She was able to be weaned from oxygen with no ongoing requirements She completed Pfizer vaccination. She has not completed her booster and should follow-up with PCP to schedule this (3) Elevated liver transaminase level: Code(s): R74.01 - Elevation of levels of liver transaminase levels Status: Acute Assessment and Plan: Secondary to acute viral illness. LFTs have normalized (4) Hypokalemia: Code(s): E87.6 - Hypokalemia Status: Acute Assessment and Plan: Potassium was low on presentation, likely secondary to GI losses as patient reported diarrhea and vomiting Potassium was monitored and supplemented Continue p.o. KCl 20 mEq daily for 1 week and follow-up with PCP (5) Essential hypertension: Code(s): I10 - Essential (primary) hypertension Status: Inactive Assessment and Plan: Blood pressure reviewed and was reasonably controlled. Continue home lisinopril DS: Summary Hospital Course Hospital Course: Date of admission: 03/25/2021 Date of discharge: 03/30/2021 Diana Alexis is a 65-year-old female with a history of asthma, hypertension, hyperlipidemia, TIA, psoriasis, and prediabetes who presented to the emergency department on 03/25/2021 after testing positive for COVID on 03/19 with complaints of increased shortness of breath, vomiting, and diarrhea. On presentation to the ED, her vital signs were stable, she was afebrile, mildly leukopenic, potassium 3.3, D-dimer elevated, CXR showed moderate airspace disease, and CTA was negative for PE. She was admitted to the hospitalist service for further evaluation and management. Please see above for further details. She was treated with dexamethasone and remdesivir. She was able to come off oxygen and had no ongoing requirements. She was feeling better, though still fatigued. Given her overall improvement, she was determined to no longer require inpatient care and was felt to be stable for discharge. The patient was comfortable with plans for discharge. 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 We discussed necessary COVID-19 precautions. Also discussed worrisome signs and symptoms for which to return and I educated her on her medications. At the patient's request, I called her daughter, Valentina, to review the patient's discharge instructions. The patient was discharged in hemodynamically stable condition on 03/30/2021 Status at Discharge Functional status at discharge: independent ambulation Overall status at discharge: patient is progressing back to baseline Time Spent with Patient Time attestation: Total time spent providing and/or coordinating discharge services: 45 minutes Time spent: Greater than 30 minutes Exam Narrative: Ms. Alexis is a well-nourished, well-appearing 65-year-old female who is sitting up in bed. She
--- NOTE | 2021-03-30 15:52 | PCRCNOTE ---
Window of time for administration has passed. See next scheduled administration.
[2021-03-30] MEDS: PRAVASTATIN SODIUM 20 MG TABLET PO (17:20)
== END 2021-03-30 18:40 | disposition home or self-care (01) | DRG 177 ==
LOC: ANHED 18:29 → ANH3MEDSUR 21:58
PROVIDERS: Admitting Provider Internal Medicine; Emergency Provider Emergency Medicine; PCP Physician Assistant; Visit Provider Physician Assistant
DX: U07.1 COVID-19 (principal); J12.82 Pneumonia due to coronavirus disease 2019; J96.01 Acute respiratory failure with hypoxia; Z68.41 Body mass index [BMI] 40.0-44.9, adult; E87.6 Hypokalemia; I10 Essential (primary) hypertension; K21.9 Gastro-esophageal reflux disease without esophagitis; E78.5 Hyperlipidemia, unspecified; G47.33 Obstructive sleep apnea (adult) (pediatric); E66.01 Morbid (severe) obesity due to excess calories; L40.9 Psoriasis, unspecified; J32.9 Chronic sinusitis, unspecified; R73.03 Prediabetes; J45.909 Unspecified asthma, uncomplicated; Z96.651 Presence of right artificial knee joint; Z90.710 Acquired absence of both cervix and uterus; Z90.49 Acquired absence of other specified parts of digestive tract; Z87.891 Personal history of nicotine dependence
CPT/HCPCS: 36415; 71045; 71275; 74177; 80048; 80053; 80076; 82565; 82728; 83615; 83735; 83880; 84460; 84484; 85014; 85018; 85025; 85027; 85380; 85610; 86140; 93005; 94618; 94640; 96361; 96374; 96375; 99285; A9270; J1100; J1650; J2405; J7030; Q9967

== ENCOUNTER 2021-10-23 11:23 | Outpatient (CLI) | payer BC, SELFPAY ==
--- NOTE | ~2021-10-23 | MM_ITS ---
EXAMINATION: MM screening [facility] BI [facility] HISTORY: Screening TECHNIQUE: Craniocaudal and mediolateral oblique 3-D tomosynthesis images were obtained and synthetic 2-D images were generated. CAD analysis was submitted and interpreted. COMPARISON: Comparison to multiple prior studies sequentially, with oldest reviewed study dated 08/19. BREAST PARENCHYMAL COMPOSITION: There are scattered areas of fibroglandular density. FINDINGS: There is no evidence of suspicious mass, calcification, or architectural distortion to sugg est malignancy in either breast. There has been no suspicious interval change. IMPRESSION: 1. No mammographic evidence of malignancy. 2. Recommend routine screening mammography in one year. BI-RADS Category 1: Negative Reviewed, dictated and finalized at location A.
== END 2021-10-23 11:24 | disposition home or self-care (01) ==
PROVIDERS: PCP Family Medicine; Visit Provider Physician Assistant
DX: Z12.31 Encounter for screening mammogram for malignant neoplasm of breast (principal)
CPT/HCPCS: 77063; 77067

== ENCOUNTER 2022-01-14 13:15 | Outpatient (CLI) | payer OTHER, SELFPAY ==
--- NOTE | ~2022-01-14 | XR_ITS ---
XR wrist LT min 3V DATE: 01/14/2022 13:45 INDICATION: Left wrist pain, recently worsening. No recent injury. TECHNIQUE: 4 views COMPARISON: 09/01/2019 left hand FINDINGS: Bohler plate and anteroposterior directed screws are noted at the distal radius, old distal radial healed fracture deformity. Old ununited ulnar styloid process fracture. There is prominent radiocarpal joint space narrowing. There is narrowing at the triscaphe joint. Ther e is osteophytic change at the first carpometacarpal joint as well as first and second metacarpophala ngeal joints. No recent fracture or dislocation. No periosteal reaction or bone destruction. IMPRESSION: Polyarticular osteoarthritis Old internally fixated distal radial fracture and old ununited ulnar styloid process fracture Reviewed, dictated and finalized at location A. IMPRESSION: Polyarticular osteoarthritis Old internally fixated distal radial fracture and old ununited ulnar styloid pr ocess fracture
--- NOTE | ~2022-01-14 | XR_ITS ---
XR cervical spine 4-5V DATE: 01/14/2022 13:45 INDICATION: Concussion. Cervical spinal cord edema. TECHNIQUE: AP, open-mouth, lateral and swimmer views COMPARISON: None FINDINGS: C1 and C2 are normally aligned and the odontoid process is intact. There is approximately 1.2 mm anterolisthesis at C3-4 and C4-5. No fracture or dislocation or locked facet or prevertebral soft tissue swelling. IMPRESSION: Approximately 1.2 mm anterolisthesis at C3-4 and C4-5 Reviewed, dictated and finalized at location A.
== END 2022-01-14 13:16 | disposition home or self-care (01) ==
PROVIDERS: PCP Family Medicine; Visit Provider Physician Assistant
DX: S14.0XXA Concussion and edema of cervical spinal cord, initial encounter (principal); M21.332 Wrist drop, left wrist; M19.032 Primary osteoarthritis, left wrist; Z87.81 Personal history of (healed) traumatic fracture; M43.12 Spondylolisthesis, cervical region
CPT/HCPCS: 72050; 73110

== ENCOUNTER 2022-02-01 11:56 | Emergency (ER) | payer OTHER, SELFPAY ==
[2022-02-01] VITALS (8 sets, daily range): BP systolic 136–202; BP diastolic 78–107; PULSE 66–75; RESP 16–20; TEMP 36.3; O2SAT 97–100
--- NOTE | ~2022-02-01 | CT_ITS ---
EXAMINATION: CT brain wo con INDICATION: Head injury COMPARISON: None TECHNIQUE: Standard unenhanced head CT. The dose-length product (DLP) was 605.33 mGy-cm. The mA was a djusted according to patient size. Iterative reconstruction technique was employed. FINDINGS: There is no intracranial hemorrhage, acute infarction, or abnormal mass lesion. The ventric les are normal. There is no abnormal mass effect or midline shift. The bryson-white matter differentiat ion is normal. The basal cisterns are patent. The orbits are normal. The paranasal sinuses, mastoids and calvarium are normal. IMPRESSION: 1. No acute intracranial abnormality. Reviewed, dictated and finalized at location A. NEER AND GEOLOGIST
--- NOTE | ~2022-02-01 | XR_ITS ---
EXAMINATION: XR knee LT min 4V DATE: 02/01/2022 12:48 INDICATION: Left knee pain TECHNIQUE: Four views of the left knee were obtained. COMPARISON: None. FINDINGS: Alignment is normal. No fracture or osteochondral lesion. There is mild tricompartmental os teoarthritis characterized by tiny marginal osteophytes. No joint effusion/synovitis. Soft tissues a re unremarkable. IMPRESSION: 1. No acute osseous abnormality. Reviewed, dictated and finalized at location A. OID SOFTWARE ENGINEER
--- NOTE | ~2022-02-01 | XR_ITS ---
EXAMINATION: XR wrist LT min 3V DATE: 02/01/2022 12:49 INDICATION: Wrist pain after fall TECHNIQUE: Posteroanterior, ulnar deviation, oblique, and lateral views of the left wrist were obtain ed. COMPARISON: 01/14/2022 FINDINGS: There are changes of plate and screw fixation of the distal radius. An ulnar styloid fractu re with nonunion is noted. No acute fracture is identified. There is moderate osteoarthritis at the t riscaphe and first carpometacarpal joints. IMPRESSION: 1. No acute osseous abnormality. Reviewed, dictated and finalized at location A. STRENGTH AND CONDITIONING COACH
--- NOTE | ~2022-02-01 | XR_ITS ---
EXAMINATION: XR chest 2V DATE: 02/01/2022 12:47 INDICATION: Dizziness TECHNIQUE: PA and lateral views of the chest are obtained. COMPARISON: 03/25/2021 FINDINGS: The lungs are free of acute opacities. No pleural effusion or pneumothorax. The cardiomedia stinal silhouette is normal. There is moderate thoracic spondylosis. Surgical clips in the right uppe r quadrant are likely from prior cholecystectomy. IMPRESSION: 1. No acute cardiopulmonary abnormality. Reviewed, dictated and finalized at location A. MACEUTICAL PLANT OPERATOR
--- NOTE | 2022-02-01 12:24 | ECG_ITS ---
Measurements Intervals [place] Rate: 68 P: 46 WV: 156 QRS: -27 QRSD: 92 T: 21 QT: 386 QTc: 413 Interpretive Statements SINUS RHYTHM NORMAL ECG COMPARED TO ECG 03/25/2021 16:57:25 NO SIGNIFICANT CHANGES Electronically Signed On 02-01-2022 14:55:10 [employer]IDEO GAME [employer] by Zack Mena D.O.
[2022-02-01 12:36] LABS: Basophils Percent Auto 0.2 % (0.2-1.2); Eosinophils Absolute Auto 0.2 K/mm3 (0-0.3); Eosinophils Percent Auto 3.6 % (0-4.4); Hematocrit 38.6 % (37.0-47.0); Hemoglobin 12.6 g/dL (12.0-15.0); Immature Granulocyte Absolute 0.01 K/mm3 (0.00-0.031); Immature Granulocyte Percent A 0.2 % (0-0.5); Lymphocytes Absolute Auto 2.13 K/mm3 (0.9-3.2); Lymphocytes Percent Auto 40.8 % (18.3-44.2); Mean Corpuscular HGB Conc 32.6 g/dl (32-36); Mean Corpuscular Hemoglobin 28.6 pg (26-34); Mean Corpuscular Volume 87.7 fl (80-100); Mean Platelet Volume 8.6 fl (7.4-10.4); Monocytes Absolute Auto 0.4 K/mm3 (0.1-0.6); Monocytes Percent Auto 7.3 % (2.6-8.5); Neutrophils Absolute Auto 2.5 K/mm3 (1.3-6.7); Neutrophils Percent Auto 47.9 % (45.5-73.1); Platelet Count Result 321 k/mm3 (150-375); Red Cell Distribution Width 13.5 % (11.5-14.5); White Blood Count 5.2 K/mm3 (4.5-10.0)
--- NOTE | 2022-02-01 12:42 | ED.GENADULT ---
HPI - General Adult General Chief complaint: Head Injury Stated complaint: fall at work 01/07/2022 still dizzy Time Seen by Provider: 02/01/22 12:07 Source: patient, RN notes reviewed and old records reviewed Mode of arrival: ambulatory Limitations: no limitations History of Present Illness HPI narrative: This is a 66 year old female with history of hyperlipidemia, hypertension who presents for evaluation of multiple complaints s/p fall on 01/07/22. PAtient states she accidentally slipped and fell almost 1 month ago. She reports hitting left side of head and body but she denies LOC. She reports intermittent headache without nausea or vomiting. She states 1 week after fall she has been having dizziness with bending over and her intermittent episodes of word finding issues. She also reports left wrist pain and she has had previous surgery on the wrist in the past. She also reports left knee pain. She denies having any bruising or swelling after her fall. She did not call her PCP for evaluation until last week and she was told to come to ER today. Related Data Home Medications Medication Instructions Recorded Confirmed albuterol sulfate 90 mcg/actuation 2 mcg inhalation Q4H PRN Shortness 09/01/19 03/25/21 aerosol inhaler (Ventolin HFA) Of Breath Or Wheezing metformin 500 mg tablet 500 mg PO BID 09/01/19 03/25/21 pantoprazole 40 mg tablet,delayed 40 mg PO DAILY 09/01/19 03/25/21 release (Protonix) pravastatin 20 mg tablet 20 mg PO DAILY 09/01/19 03/25/21 aspirin 81 mg capsule 81 mg PO DAILY 03/27/21 03/27/21 lisinopril 40 mg tablet 40 mg PO DAILY 03/27/21 03/27/21 Allergies Allergy/AdvReac Type Severity Reaction Status Date / Time codeine Allergy Severe HIVES, Verified 09/01/19 13:47 FLUSHING Review of Systems Review of Systems: All systems reviewed & are unremarkable except as noted in HPI and below Constitutional: Constitutional: Denies chills, Denies fatigue and Denies fever(s) Eyes: Eyes: Denies change in vision and Denies photophobia ENT: Denies nasal congestion Cardiovascular: Cardiovascular: Denies chest pain and Reports rapid heart rate (history of palpitation) Respiratory: Respiratory: Denies chest congestion, Denies cough and Denies dyspnea Gastrointestinal: Gastrointestinal: Denies abdominal pain, Denies nausea and Denies vomiting Musculoskeletal: Musculoskeletal: Reports myalgias and Reports arthralgias Neurologic: Denies vertigo, Reports dizziness, Reports headache(s), Denies focal weakness, Reports numbness (she reports neuropathy in her feet) and Denies weakness Psychiatric: Psychiatric: Reports anxiety and Denies depression [facility] Past Medical History Medical History (Updated 02/01/22 @ 15:07 by Cris Benedict MD) Asthma Borderline diabetes mellitus Chronic sinusitis Essential hypertension GERD (gastroesophageal reflux disease) Hyperlipidemia Normal colonoscopy Obesity, morbid, BMI 40.0-49.9 Obstructive sleep apnea Does not use CPAP Psoriasis Right arm Surgical History Surgical History H/O hysterectomy for benign disease (~1997) History of appendectomy History of total right knee replacement (~2016) Hx of cholecystectomy Status post open reduction with internal fixation of fracture (~2007) Left radius Family History Family History Mother Glaucoma CHF (congestive heart failure) Sibling No problems noted. Father , Age 62 Acute myocardial infarction Malignant neoplasm of prostate Social History Social History Social History: Patient lives at home with her of 16 years. She has 3 biologic children and 2 step children. She works at [employer]. She rarely drinks alcohol and only small amounts. She smoked 1 pack of cigarettes per week for approximately 3-5 years when she was younger.
[2022-02-01 12:47] LABS: Alanine Aminotransferase 22 U/L (6-35); Albumin Level 4.3 g/dL (3.5-5.1); Alkaline Phosphatase 57 U/L (38-126); Anion Gap 12 mmol/L (8-16); Aspartate Amino Transferase 28 U/L (14-36); Bilirubin,Total 0.4 mg/dL (0.2-1.3); Blood Urea Nitrogen 16 mg/dL (7-17); Calcium 9.1 mg/dL (8.4-10.2); Carbon Dioxide 25 mmol/L (22-30); Chloride 102 mmol/L (98-107); Estimated CRCL calculation 108 ml/min; Estimated Glomerular Filt Rate > 60; Glucose 109 mg/dL (65-110); Potassium 4.1 mmol/L (3.4-5.0); Sodium 139 mmol/L (137-145)
[2022-02-01 12:55] LABS: Prothrombin Time 12.4 Seconds (11.1-14.7)
[2022-02-01 12:56] LABS: Partial Thromboplastin Time 27.4 SECONDS (22.3-36.8)
[2022-02-01] MEDS: cloNIDine HCL 0.1 MG TABLET 0.2 MG PO (14:09)
== END 2022-02-01 15:16 | disposition home or self-care (01) ==
PROVIDERS: Emergency Provider General Practice; PCP Family Medicine
DX: S06.0X0A Concussion without loss of consciousness, initial encounter (principal); M25.532 Pain in left wrist; M25.562 Pain in left knee; E78.5 Hyperlipidemia, unspecified; I10 Essential (primary) hypertension; J45.909 Unspecified asthma, uncomplicated; W01.0XXA Fall on same level from slipping, tripping and stumbling without subsequent striking against object, initial encounter
CPT/HCPCS: 36415; 70450; 71046; 73110; 73564; 80053; 85025; 85610; 85730; 93005; 99284; A9270

== ENCOUNTER 2023-02-04 13:32 | Outpatient (CLI) | payer MEDICARE, SELFPAY ==
--- NOTE | ~2023-02-04 | XR_ITS ---
XR shoulder LT min 2V DATE: 02/04/2023 13:52 INDICATION: Left shoulder pain TECHNIQUE: 4 views COMPARISON: None FINDINGS: No fracture or dislocation, periosteal reaction or bone destruction. No abnormal soft tiss ue calcification. Moderate cervical spondylosis. Degenerative spurring of the thoracic spine. IMPRESSION: Negative left shoulder Degenerative change of cervical and thoracic spine Reviewed, dictated and finalized at location B. RONMENTAL FIELD TEAM MEMBER
== END 2023-02-04 13:33 | disposition home or self-care (01) ==
PROVIDERS: PCP Family Medicine; Visit Provider Physician Assistant
DX: M25.512 Pain in left shoulder (principal)
CPT/HCPCS: 73030

== ENCOUNTER 2024-12-07 13:35 | Outpatient (CLI) | payer OTHER, MEDICARE, SELFPAY ==
--- OUTSIDE RECORDS SUMMARY | 2015-07-20 05:34 | XMS_ITS | Continuity of Care Document ---
Author Organization [facility] Address [address] [place] [place] [address] [place] [address] Phone Care Team Providers Care Folder Inspector Name Role Phone Kyle Piña MD Unavailable Unavailable Allergies, Adverse Reactions, Alerts Substance Reaction Status Criticality PROPOXYPHENE NAPSYLATE Active No In formation acetaminophen Active No Information codeine Active No Information Medications Medication Instructions Dosage Effective Dates (start - stop) Status Comments Flonase 50 mcg/actuation nasal spray,suspension inhale 2 spray by intranasal route every day in each nostril 100 MCG - Active Accu-Chek SmartView Test Strips once per day - Active lancets once per day - Active Ventolin HFA 90 mcg/actuation aerosol inhaler inhale 2 puff by inhalation route every 4 - 6 hours as needed - Active Protonix 40 mg tablet,delayed release take 1 tablet by oral route every day 40 MG - Active pravastatin 20 mg tablet take 1 Tablet by oral route every day 20 MG - Active metformin 1,000 mg tablet take 1 tablet by oral route 2 times every day with morning and evening meals 1000 MG - Active lisinopril 20 mg-hydrochlorothiazi de 12.5 mg tablet take 1 tablet by oral route every day 1.00 tablet - Active Procedures Procedure Date OFFICE/OUTPATIENT VISIT, EST OFFICE/OUTPATIENT VISIT, EST PREV VISIT, NEW, AGE 40-64 Advance Directives Directive Yes / No Effective Date File Name No Information Encounters Encounter Description Practice Location Reason(s) For Visit Diagnoses Date Provider Providers Copied on Encounter [facility], [address], [place], [place], [id number], [place] [phone] [facility] No Information 6 Wang Wright. [address], [place], [place], [id number] , [place]. tel:[phone] [facility], [address], [place], [place], [id number], [place] tel:[phone] [facility] No Information 6 Wang Wright. [address], [place], [place], [address] , [place]. [phone] OFFICE/OUTPA TIENT VISIT, [facility], [address], [place], [place], [id number], [place] [phone] [facility] GERD1 (chief complaint) HLP1 (chief complaint) DM (chief complaint) hTN (chief complaint) Shortness of breathGERD w/o esophagitisMixed hyperlipidemiaType 2 diabetes mellitus with diabetic mononeuropathy 6 Wang Wright. [address], [place], [place], [id number] , [place]. [phone] Referring Provider: Kyle Piña [address], [place], [place], [id number]. tel:[phone] OFFICE/OUTPA TIENT VISIT, [facility], [address], [place], [place], [id number], [place] tel:[phone] [facility] HLP (chief complaint) DM (chief complaint) HTN (chief complaint) GERD1 (chief complaint) Type 2 diabetes mellitus with diabetic mononeuropathyHyper lipidemiaGERD w/o esophagitisEssentia l (primary) hypertension 6 Wang Wright. [address], [place], [place], [address] , [place]. [phone] Referring Provider: Kyle Piña [address], [place], [place], [id number]. tel:[phone] PREV VISIT, NEW, AGE 40-64 [facility], [address], [place], [place], [address], [place] tel:[phone] [facility] Physical (chief complaint) Encntr for general adult medical exam w/o abnormal findings 6 Wang Wright. [address], [place], [place], [address] , [place]. tel:[phone] Referring Provider: Kyle Piña, [address], [place], [place], [address]. tel:[phone] Family History Family Member Type Diagnosis Age At Onset Father Problem (finding) Coronary artery disease 61 Brother Problem (finding) Leukemia (Cause Of Deat h) 18 Mother Problem (finding) Hypertension Payers Payer name Insurance type Covered democrat ID Authoriza tion(s) No Information Social History Type Description Quantity Date Captured Comments Sex Female Smoking Status No Information Chief Complaint And Reason For Visit No Information Plan Of Treatment Date Type Action Status No Information History Of Present Illness Encounter Date Complaint History Of Prese nt Illness GERD1 Pt has GERD and she takes protonxi and doing ok Pt deniesany abd pain or any GERd symptmos HLP1 Pt has HLP Pt ta kes pravastain and her level is good. Pt denies any myalgia DM Pt has diabetic neruopathy. Pt takes metfomrin. Pt has some toe numnbess. Pt could not tolerate neurontin. Pt stopped it Her BG is around 105-115. Pt denies any polyruia, polydipsisa hTN Pt takes lisinpr il/HCTZ and her BP is stable. Pt denies any chest pain or headahe HLP Pt takes pravata tin and her lipid profile is ok except for mildly elevated TG. Pt eats a lot of pasta and carb DM Pt takes metform in only Her BG is around 105 on average. Her A1c is 6.2. Pt c/o bilateral foot numnbess. Pt denies any polyuria, polydipsia HTN Pt takes lisinoi rl/hcTZ and her bp is stable PT denies any chest pain or headache GERD1 Pt has GERD and she takes protonix daily Pt denies any abd pain or any GERD symptoms Physical Pt needs annual physical. Pt has DM. Pt takes metformin and her BG is around 115s. Pt crow any numnbess. Pt takes lisinoril/HCTZ for HTN. Pt takes pravastatin for HLP. Pt takes protonix for GERd. Pt recently went to ER for bronchitis. Pt tok cefuroxime, predisone and Zpak and is feeling 100% better. NO chest pain or SOB. Pt denies any other complaints Instructions Date Instruction Additional Infor mation Prescribed Diet Educ ation/Lifestyle Education Regarding Diet Related to Dietary Surveillance and Counseling Prescribed Activity and Exercise Education Related to Dietary Surveillance and Counseling Prescribed Diet Educ ation/Lifestyle Education Regarding Diet Related to Dietary Surveillance and Counseling Prescribed Activity and Exercise Education Related to Dietary Surveillance and Counseling Prescribed Diet Educ ation/Lifestyle Education Regarding Diet Related to Dietary Surveillance and Counseling Prescribed Activity and Exercise Education Related to Dietary Surveillance and Counseling Assessments Type Assessment Date No Information
--- NOTE | ~2024-12-07 | XR_ITS ---
XR_[id number]_CR Indication: W10.9XXA - Fall (on) (from) unspecified stairs and steps,... Comparison: None Findings: The vertebral heights are intact. No fracture or subluxation. The disc heights are intact. Soft tissues unremarkable Impression: No acute abnormality. Reviewed, dictated and finalized at location A. Impression: No acute abnormality.
--- NOTE | ~2024-12-07 | XR_ITS ---
EXAMINATION: XR humerus RT, 12/07/2024 14:00 CDT HISTORY: W10.9XXA - Fall (on) (from) unspecified stairs and steps,... COMPARISON: No comparisons available. Findings: No acute fracture or malalignment. No significant degenerative changes. Soft tissues unremarkable. Impression: No acute fracture or malalignment. Reviewed, dictated and finalized at location A. Impression: No acute fracture or malalignment.
--- NOTE | ~2024-12-07 | XR_ITS ---
EXAMINATION: XR hand RT 2V, 12/07/2024 14:00 CDT HISTORY: W10.9XXA - Fall (on) (from) unspecified stairs and steps,... COMPARISON: No comparisons available. Findings: No acute fracture or malalignment. There are severe degenerative changes of the distal and proximal interphalangeal joints as well as the first metacarpal carpal joint. Soft tissues unremarkable. Impression: No acute fracture or malalignment. Reviewed, dictated and finalized at location A. Impression: No acute fracture or malalignment.
--- NOTE | ~2024-12-07 | XR_ITS ---
EXAMINATION: XR forearm RT 2V, 12/07/2024 14:00 CDT HISTORY: W10.9XXA - Fall (on) (from) unspecified stairs and steps,... COMPARISON: No comparisons available. Findings: No acute fracture or malalignment. No significant degenerative changes. Soft tissues unremarkable. Impression: No acute fracture or malalignment. Reviewed, dictated and finalized at location A. Impression: No acute fracture or malalignment.
--- NOTE | ~2024-12-07 | XR_ITS ---
EXAMINATION: XR shoulder RT min 2V, 12/07/2024 14:00 CDT HISTORY: W10.9XXA - Fall (on) (from) unspecified stairs and steps,... COMPARISON: No comparisons available. Findings: No acute fracture or malalignment. No significant degenerative changes. Soft tissues unremarkable. Impression: No acute fracture or malalignment. Reviewed, dictated and finalized at location A. Impression: No acute fracture or malalignment.
--- OUTSIDE RECORDS SUMMARY | 2024-12-07 13:58 | XMS_ITS | Clinical Summary ---
Author Organization [facility] Address [address] [place] [address] Care Team Providers Care Zipper Measurer Name Role Phone Unknown, Provider Primary Care Provider Unavaila ble Source Comments [facility],non-owned Affiliates and Associated Physician Practices is amultiple site organization consisting of ambulatory clinics and hospital sitesin [place], [place], [place] and [place]. This disclosure is being madepursuant to the Care Everywhere program and may not contain all information available regarding this patient. Last updated 17.[facility] Allergies Active Allergy Reactions Criticality Noted Date Comments Codeine Other 10/13/2023 other Medications * Be aware that medications may not be up to date on this document. Alwaysverify current medications with the patient. metFORMIN (Glucophage) 500 MG tablet Take 1 (one) tablet by mouth 2 times daily with morning and evening meal Active lisinopril (Prinivil; Zestril) 40 MG tablet Take 1 (one) tablet by mouth once daily Active hydroCHLOROthia zide (Microzide) 12.5 MG capsule Take 1 (one) capsule by mouth once daily Active amLODIPine (Norvasc) 5 MG tablet Take 1 (one) tablet by mouth once daily Active pravastatin (Pravachol) 20 MG tablet Take 1 (one) tablet by mouth at bedtime Active pantoprazole EC (Protonix) 40 MG tablet Take 1 (one) tablet by mouth once daily Active albuterol HFA (Proventil; Ventolin; Proair) 108 (90 Base) MCG/ACT inhaler Inhale 2 (two) puffs by mouth 2 times daily Active fluticasone propionate (Flonase) 50 MCG/ACT nasal spray Aurora 2 (two) sprays into each nostril once daily Active multivitamin daily tablet Take 1 (one) tablet by mouth daily with food Active B Jxsjavz-T-Zyujt Acid (vitamin B complex with C) Take 1 (one) tablet by mouth once daily Active Flaxseed, Linseed, (Flax Seed Oil) 1000 MG Take 1,000 (one thousand) mg by mouth once daily Active magnesium 30 MG tablet Take 1 (one) tablet by mouth once daily Active Black Cohosh 20 MG Take 20 mg by mouth once daily Active Active Problems No known active problems Immunizations Immunization Administration Dates Next Due INFLUENZA VACCINE 01/29/2014,12/20/2012 INFLUENZA VACCINE, HIGH-DOSE , QUADR. (FLUZONE HIGH-DOSE QUADRIVALENT; 65Y+), 0.7 ML (HD-IIV4) 12/06/2022 INFLUENZA VACCINE, QUADR. (A FLURIA, FLUZONE QUADRIVALENT; 6MO+) (IIV4) 12/11/2020 INFLUENZA VACCINE, QUADR. (F LUZONE; FLULAVAL; FLUARIX; AFLURIA QUADRIVALENT; 6MO+), 0.5 ML (IIV4) 12/06/2019,12/25/2017,01/05/2017 INFLUENZA VACCINE, TRIV. (FL UZONE; FLULAVAL; FLUARIX; AFLURIA TRIVALENT; 6MO+), 0.5 ML (IIV3) 12/18/2014 PNEUMOCOCCAL PPV VACCINE 12/25/2017 TDAP, HISTORIC VACCINE 01/16/2021 Zoster Hzv Vacc Recombinant Inj Im 02/22/2022, iNFLUENZA VACCINE, RECOM-PETTY, QUADR. (FLUBLOCK QUADRIVALENT; 18Y+) (RIV4) 01/17/2022,12/31/2018 Social History Tobacco Use Types Packs/Day Years Used Date Smoking Tobacco: Never Smokeless Tobacco: Never Alcohol Use Standard Drinks/Week Comments Yes 0 (1 standard drink = 0.6 oz pur e alcohol) socially/twice a year Comments No Sex and Gender Information Value Date Recorded Sex Assigned at Not on file Legal Sex Female 6:59 PM SKIN CARE THERAPIST Gender Identity Not on file Sexual Orientation Not on file Last Filed Vital Signs Vital Sign Reading Time Taken Comments Blood Pressure 131/85 10/13/2023 11:15 AM CDT Pulse 69 10/13/2023 11:15 AM CDT Temperature - - Respiratory Rate - - Oxygen Saturation - - Inhaled Oxygen Concentration - - Weight 99.2 kg (218 lb 9.6 oz) 10/13/2023 11:15 AM CDT Height 161.3 cm (5' 3.5) 10/13/2023 11:15 AM CD T Body Mass Index 38.12 10/13/2023 11:15 AM CDT Plan of Treatment Health Maintenance Due Date Last Done Comments BONE DENSITY TESTING 1955 COLOGUARD (AGES 45-75) - COLON CA SCREENING 1957 COLON MONITORING 1957 COLONOSCOPY - COLON CA SCREENING 1957 CT COLONOGRAPHY - COLON CA SCREENING 1957 Colorectal Cancer Screening 1957 FIT - COLON CA SCREENING 1957 FLEX SIG - COLON CA SCREENING 1957 MAMMOGRAM 1955 HEPATITIS C SCREENING 09/09/1975 PNEUMOCOCCAL VACCINE 50+ (2 of 2 - PCV) 12/25/2018 12/25/2017 SCREENING FOR DIABETES 10/13/2023 DEPRESSION SCREENING 03/23/2024 MEDICARE AWV CALENDAR YEAR 2024 COVID-19 VACCINE ( season) 2024 12/31/2022, 01/17/2022, 08/17/2021, Additional history exists INFLUENZA VACCINE (#1) 2024 , 01/17/2022, 12/11/2020, Additional history exists DTAP/TDAP/TD VACCINES (2 - Td or Tdap) 01/16/2031 01/16/2021 Respiratory Syncytial Virus (RSV) Vaccine Pt: or over 60 yrs (1 - 1-dose 75+ series) 2032 ZOSTER VACCINE Completed 02/22/2022, 10/17/2021 HEPATITIS B VACCINE Aged Out No longe r eligible based on patient's age to complete this topic HIB VACCINE Aged Out No longer eligi ble based on patient's age to complete this topic HPV VACCINE Aged Out No longer eligi ble based on patient's age to complete this topic MENINGOCOCCAL (Group B) VACCINE SHARED DECISION-MAKING Aged Out No longer eligible based on patient's age to complete this topic MENINGOCOCCAL GROUPS A/C/Y/W VACCINE Aged Out No longer eligible based on patient's age to complete this topic Insurance Care Teams Zipper Measurer Relationship Specialty Start Date End Date Unknown, Provider PCP - General 10/13/23
--- OUTSIDE RECORDS SUMMARY | 2024-12-07 13:58 | XMS_ITS | Clinical Summary ---
Author Organization [facility] Address [address] [place] [id number] Care Team Providers Care Fundraising Officer Name Role Phone Brock Gongora MD Primary Care Provider [phone] Social History Tobacco Use Types Packs/Day Years Used Date Smoking Tobacco: Never Assessed Comments Unknown Sex and Gender Information Value Date Recorded Sex Assigned at Not on file Legal Sex Female 2:17 PM CATEGORY DEVELOPMENT ANALYST Gender Identity Not on file Sexual Orientation Not on file Plan of Treatment Health Maintenance Due Date Last Done Comments Colorectal Cancer Screening Colonoscopy (10 Years) 1957 Hepatitis C 09/14/1975 DTaP, Tdap and Td Vaccines ( 1 - Tdap) 1976 Mammogram Screening 1997 Pneumococcal Vaccine: 50+ Ye ars (1 of 1 - PCV) 09/14/2007 Zoster Vaccines (1 of 2) 09/14/2007 Dexa Scan (General) 2022 COVID-19 Vaccine ( - 2023-2 5 season) 2024 RSV Immunization or 60+ Years (1 - 1-dose 75+ series) 2032 Meningococcal B Vaccine Aged Out No l onger eligible based on patient's age to complete this topic Meningococcal Vaccine Aged Out No ayse osman eligible based on patient's age to complete this topic RSV Immunizations Under 20 Months Aged Out No longer eligible based on patient's age to complete this topic Insurance [facility] Care Teams Fundraising Officer Relationship Specialty Start Date End Date Brock Gongora MD [address] [place] [id number] PCP - General FAMILY PRACTICE 03/08/19
== END 2024-12-07 13:36 | disposition home or self-care (01) ==
PROVIDERS: PCP Family Medicine
DX: M25.511 Pain in right shoulder (principal); M79.641 Pain in right hand; M79.631 Pain in right forearm; M54.2 Cervicalgia; M79.651 Pain in right thigh; W10.9XXA Fall (on) (from) unspecified stairs and steps, initial encounter
CPT/HCPCS: 72040; 73030; 73060; 73090; 73120